=== PATIENT | female | born 1955 | race Caucasian/White ===

== ENCOUNTER 2019-09-23 10:56 | Emergency (ER) | payer OTHER ==
--- OUTSIDE RECORDS SUMMARY | 2019-09-23 11:01 | XMS REPORT | Continuity of Care Document ---
:1955 External Reference #:[id number] Author Name Dylan Seth M.D. Address [address] [place] [address] Care Team Providers Name Role Phone Ryley Pena MD - Ophthalmology Care Team Information Podiatric Assistant [phone] Dylan Seth MD - Family Medicine Care Team Information Podiatric Assistant [phone] Problems Active Problems Provider Date Osteochondropathy Dylan Seth M.D. Onset: 07/31/2011 Weight decreased Dylan Seth M.D. Onset: 08/24/2019 Depressive disorder Dylan Seth M.D. Onset: 08/24/2019 Social History Type Date Description Comments Sex Unknown Tobacco Use Start: Unknown Never Smoked Cigarettes ETOH Use Rare Tobacco Use Start: Unknown Patient has never smoked Allergies, Adverse Reactions, Alerts Active Allergies Reaction Severity Comments Date Sulfa Drugs 10/10/1998 Medications Active Medications SIG Qnty Indications Ordering Provider Date Escitalopram Oxalate 1/2 by mouth 30tabs Dylan Seth, 08/24/2019 10mg every day M.D. Tablets Calcium 600/Magnesium 1 by mouth every Unknown 300/Vitamin D at bedtime 200-100-33.3mg-mg-Unit Capsules Vitamin D3 Vegan 1 by mouth Unknown 2000Unit every day Capsules Gildardo Niagen Unknown Calcium 600 Plant Unknown 600mg Tablets Vitamin B Complex 1 by mouth every Unknown day Tablets Immunizations CPT Code Status Date Vaccine Lot # [id number] Given 09/05/2018 Zoster (Shingles) Vaccine (HZV), Recombinant, [id number] Subunit, Adjuvanted 28203 Given 08/02/2018 Influenza Vac, Quadrivalent, [place] [id number] Given 08/02/2018 Influenza Vac, Quadriv[place], [place] [address] Given 06/01/2018 Zoster (Shingles) Vaccine (HZV), Recombinant, [id number] Subunit, Adjuvanted 47154 Given 01/04/2018 Tdap Tetanus, W Pertussis [id number] Vital Signs Date Vital Result Comment 08/24/2019 3:22pm BP Systolic 100 mmHg BP Diastolic 64 mmHg Heart Rate 60 /min Body Temperature 97.9 F Respiratory Rate 12 /min Height 65 inches 5'5" per pt Weight 131.00 lb BMI (Body Mass Index) 21.8 kg/m2 07/12/2019 2:42pm BP Systolic 110 mmHg BP Diastolic 68 mmHg Heart Rate 76 /min Body Temperature 98.2 F Respiratory Rate 18 /min Weight 119.50 lb Results Test Date Facility Test Result H/L Range Note Laboratory test 07/12/2019 [facility]) Phosphorus 3.2 mg/dL 2.5- 4.8 finding Comprehensive 07/12/2019 [facility]) Sodium 137 mEq/L 134-149 Metabolic Prof Potassium 3.8 mEq/L 3.6-5.5 Chloride 107 mEq/L 94-112 Carbon Dioxide 22 mEq/L 21-32 Glucose 116 mg/dL High 70-105 BUN 14 mg/dL 6-26 Creatinine 0.8 mg/dL 0.6-1.4 BUN/Creat Ratio 17.5 CALC 8.0-36.0 Calcium 9.1 mg/dL 8.6-10.2 Total Protein 7.9 g/dL 6.4-8.3 Albumin 4.5 g/dL 3.8-5.5 Globulin 3.4 g/dL 2.0-4.8 A/G Ratio 1.3 CALC 0.6-2.3 Alk. Phosphatase 86 U/L 30-110 Alt (SGPT) 15 U/L 7-35 Ast (Sgot) 27 U/L 5-34 Total Bilirubin 0.4 mg/dL 0.2-1.3 GFR Non- >60 ml/min/1.73m^ >=60 GFR >60 ml/min/1.73m^ >=60 Laboratory test finding 07/12/2019 [facility]) TSH 2.71 mIU/L 0.50-6.00 Free T4 1.08 ng/dL 0.75-1.54 Free T3 2.51 pg/mL 2.00-4.90 Magnesium, Serum 2.5 mEq/L High 1.2-2.1 Vitamin B-12 306 pg/mL 230-1050 Vitamin D25 30 30-100 Serum Iron 65 g/dL 60-150 CBC Electronic Fma 07/12/2019 [facility]) WBC 5.3 x10^3/UL 4.0- 10.0 RBC 4.25 x10^6/UL 3.93-6.00 HGB 13.8 g/dL 12.0-17.0 HCT 41 % 35-50 MCV 96.0 fL High 80.0-95.0 1 MCH 32.2 pg 25.6-32.2 MCHC 33.8 g/dL 32.2-36.0 RDW-CV 12.7 % 11.6-14.4 PLT 248 x10^3/UL 163-400 MPV 10.3 fL 9.4-12.4 Maura# 3.30 x10^3/UL 1.56-6.13 Lymph# 1.37 x10^3/UL 1.18-3.74 [place]# 0.46 x10^3/UL 0.24-0.82 Eos # 0.1 x10^3/UL 0.0-0.5 Baso # 0.05 x10^3/UL 0.01-0.08 Maura% 62.7 % 34.0-70.0 Lymph % 26.0 % 20.0-52.0 [place]% 8.7 % 5.0-12.0 Eos% 1.5 % 0.7-7.0 Baso% 0.9 % 0.1-1.2 Laboratory test 07/12/2019 [facility] Folate (Folic 8.3 ng/mL >3.0 2, [address] Acid), [place] [address] [phone])- - 1 RESULTS VERIFIED BY REPEAT ANALYSIS 2 1 sst 3 A serum folate concentration of less than 3.1 ng/mL is considered to represent clinical deficiency. Procedures Date Code Description Status 03/06/2018 [id number] Colonoscopy Completed 03/31/2017 [id number] Bone Mineral Density Test Completed 04/30/2016 [id number] Mammogram Completed 11/24/2015 [id number] Mammogram Completed 08/06/2014 [id number] Mammogram Completed 05/01/2013 [id number] Mammogram Completed 11/13/2010 [id number] Mammogram Completed 02/05/2009 [id number] Mammogram Completed 01/29/2008 [id number] Colonoscopy Completed 12/02/2006 [id number] Mammogram Completed Medical Devices Description No Information Available Encounters Type Date Location Provider Dx Diagnosis Office Visit 07/12/2019 [facility] ADALID Valdes G31.84 Mild cognitive 2:15p impairment, so stated E55.9 Vitamin D deficiency, unspecified Assessments Date Code Description Provider 08/24/2019 F32.89 Other specified depressive episodes Dylan Seth M.D. 08/24/2019 R63.4 Abnormal weight loss Dylan Seth M.D. 07/12/2019 G31.84 Mild cognitive impairment, so stated ADALID Valdes 07/12/2019 E55.[place] Vitamin D deficiency, unspecified ADALID Valdes Plan of Treatment Future Appointment(s):10/15/2019 11:30 am - Dylan Seth M.D. at [facility]08/24/2019 - Dylan Seth M.D.F32.89 Other specified depressive episodesComments:she seems improved with regard to her appetite, weight is coming up, she agrees that depression andthe stress of her job are becoming worse and agrees to a low dose of Lexapro as a trial. She plans on contacting [facility] to get into counselling. I told her that a period of short term disability would be advised at this time,she should be out of work until 2019R63.4 Abnormal weight lossComments:weight is coming up, lab work was essentially negativeAllNew Medication:Escitalopram Oxalate 10 mg - 1/2 by mouth every dayComments:mammogram orderedFollow up:she is going to contact me in 2 weeks with update, return in one month Functional Status Description No Information Available Mental Status Description No Information Available Referrals Description No Information Available
[2019-09-23 11:04] VITALS: BP 135/71
--- NOTE | 2019-09-23 11:14 | UC ---
Ear Complaint HPI - HPI Summary HPI Summary: uri symptoms for 2 weeks-yesterday developed right ear pain - History of Current Complaint Chief Complaint: UCEar Stated Complaint: ear ache Time Seen by Provider: 09/23/19 11:10 Hx Obtained From: Patient ?: No Onset/Duration: Lasting Weeks - 2, Worse Since - 1 day ago Pain Intensity: 8 Pain Scale Used: 0-10 Numeric Aggravating Factors: Nothing Alleviating Factors: Nothing - Allergies/Home Medications Allergies/Adverse Reactions: Allergies Allergy/AdvReac Type Severity Reaction Status Date / Time Sulfa (Sulfonamide Allergy Nausea And Verified 09/23/19 11:04 Antibiotics) Vomiting Home Medications: Home Medications Escitalopram * [Lexapro 5 mg (NF)] 5 mg PO DAILY 09/23/19 [History Confirmed ] PMH/Surg Hx/FS Hx/Imm Hx Previously Healthy: Yes Psychological History: Anxiety - Surgical History Surgical History: Yes Surgery Procedure, Year, and Place: APPENDECTOMY-1961. [facility]INKY- BONE MARROW PLACEMENT- - Family History Known Family History: Positive: None - Social History Occupation: Employed Full-time Lives: With Family Alcohol Use: None Substance Use Type: None Smoking Status (MU): Never Smoked Tobacco Review of Systems All Other Systems Reviewed And Are Negative: Yes Constitutional: Positive: Negative Skin: Positive: Negative Eyes: Positive: Negative ENT: Positive: Ear Ache - right, Nasal Discharge, Sinus Congestion Respiratory: Positive: Cough Cardiovascular: Positive: Negative Gastrointestinal: Positive: Negative Genitourinary: Positive: Negative Motor: Positive: Negative Neurovascular: Positive: Negative Musculoskeletal: Positive: Negative Neurological: Positive: Negative Psychological: Positive: Negative Is Patient Immunocompromised?: No Physical Exam Triage Information Reviewed: Yes Appearance: Well-Appearing, No Pain Distress, Well-Nourished Vital Signs: Initial Vital Signs Temp 98.0 F 09/23/19 11:00 Pulse 70 09/23/19 11:00 Resp 16 09/23/19 11:00 BP 135/71 09/23/19 11:00 Pulse Ox 99 09/23/19 11:00 Vital Signs Reviewed: Yes Eye Exam: Normal Eyes: Positive: Conjunctiva Clear ENT Exam: Normal ENT: Positive: Normal ENT inspection, Hearing grossly normal, Nasal congestion, TMs normal - left, TM bulging - right, Uvula midline. Negative: Trismus, Muffled voice, Hoarse voice, Dental tenderness, Sinus tenderness Neck exam: Normal Neck: Positive: Supple, Nontender, No Lymphadenopathy Respiratory Exam: Normal Respiratory: Positive: Chest non-tender, Lungs clear, Normal breath sounds, No respiratory distress, No accessory muscle use Cardiovascular Exam: Normal Cardiovascular: Positive: RRR, Pulses Normal, Brisk Capillary Refill Musculoskeletal Exam: Normal Musculoskeletal: Positive: Strength Intact, ROM Intact, No Edema Neurological Exam: Normal Neurological: Positive: Alert, Muscle Tone Normal Psychological Exam: Normal Skin Exam: Normal Ear Complaint Course/Dx - Course Course Of Treatment: increase fluids, Tylenol, ibuprofen for pain augmentin bid for 10 days follow with pcp prn - Differential Dx/Diagnosis Provider Diagnosis: Right acute otitis media Discharge ED - Sign-Out/Discharge Documenting (check all that apply): Patient Departure All imaging exams completed and their final reports reviewed: No Studies - Discharge Plan Condition: Stable Disposition: HOME Prescriptions: Amoxicillin/Clavulanate TAB* [Augmentin TAB 875*] 875 mg PO BID #20 tab Patient Education Materials: Ear Infection (ED) Referrals: Dylan Seth MD [Primary Care Provider] - If Needed - Billing Disposition and Condition Condition: STABLE Disposition: Home
== END 2019-09-23 11:17 | disposition home or self-care (01) ==
LOC: UCEAST 10:56
DX: H66.91 Otitis media, unspecified, right ear (principal); F41.9 Anxiety disorder, unspecified; R05 Cough; J34.89 Other specified disorders of nose and nasal sinuses; Z79.899 Other long term (current) drug therapy; Z88.2 Allergy status to sulfonamides
CPT/HCPCS: 99212; G0463

== ENCOUNTER 2019-10-29 13:24 | Emergency (ER) | payer OTHER, MEDICARE ==
[2019-10-29 13:50] VITALS: BP 113/64
--- NOTE | 2019-10-29 13:52 | UC ---
Skin Complaint HPI - HPI Summary HPI Summary: 64 yo female presents with right great toe pain. She tells me that a few days ago she cut her right big toe nail too short and last night developed pain to the medial aspect of the toe/nail skin-fold. Today is red, swollen, and more painful. Denies injury or fever. - History of Current Complaint Chief Complaint: UCLowerExtremity Time Seen by Provider: 10/29/19 13:50 Stated Complaint: TOE PROBLEM Hx Obtained From: Patient Hx Last Menstrual Period: post Onset/Duration: Sudden Onset Onset Severity: Mild Current Severity: Moderate Pain Intensity: 5 - Allergy/Home Medications Allergies/Adverse Reactions: Allergies Allergy/AdvReac Type Severity Reaction Status Date / Time Sulfa (Sulfonamide Allergy Nausea And Verified 10/29/19 13:50 Antibiotics) Vomiting Home Medications: Home Medications Donepezil TAB* [Aricept 5 MG TAB*] 1 tab PO DAILY 10/29/19 [History Confirmed ] PMH/Surg Hx/FS Hx/Imm Hx Neurological History: Dementia Psychological History: Anxiety, Depression - Surgical History Surgical History: Yes Surgery Procedure, Year, and Place: APPENDECTOMY-1961. PINKY- BONE MARROW PLACEMENT- -1982 - Family History Known Family History: Positive: None - Social History Lives: With Family Alcohol Use: None Substance Use Type: None Smoking Status (MU): Never Smoked Tobacco Review of Systems All Other Systems Reviewed And Are Negative: No Constitutional: Positive: Negative Skin: Positive: Other - Great right toe pain Respiratory: Positive: Negative Cardiovascular: Positive: Negative Neurological: Positive: Negative Psychological: Positive: Negative Physical Exam - Summary Physical Exam Summary: GENERAL: NAD. WDWN. No pain distress. SKIN: RIGHT GREAT TOE: Medial aspect of nail-skin fold with mild erythema, edema , and tenderness. No abscess or fluctuance. CHEST: No accessory muscle use. Breathing comfortably and in no distress. CV: Pulses intact. Cap refill <2seconds NEURO: Alert. PSYCH: Age appropriate behavior. Triage Information Reviewed: Yes Vital Signs: Initial Vital Signs Temp 98.6 F 10/29/19 13:46 Pulse 69 10/29/19 13:46 Resp 16 10/29/19 13:46 BP 113/64 10/29/19 13:46 Pulse Ox 98 10/29/19 13:46 Vital Signs Reviewed: Yes Course/Dx - Course Course Of Treatment: Paronychia. Advised warm salt water/epsom salt soaks. - Diagnoses Provider Diagnosis: Paronychia Discharge ED - Sign-Out/Discharge Documenting (check all that apply): Patient Departure All imaging exams completed and their final reports reviewed: No Studies - Discharge Plan Condition: Stable Disposition: HOME Prescriptions: Cephalexin CAP* [Keflex CAP*] 500 mg PO TID #15 cap Patient Education Materials: Paronychia (ED) Referrals: Dylan Seth MD [Primary Care Provider] - Trevin Santos DPM [Doctor of Podiatric Medicine] - As Soon As Possible Additional Instructions: If you develop a fever, shortness of breath, chest pain, new or worsening symptoms - please call your PCP or go to the ED immediately. I recommend that you schedule an appointment with podiatry for further treatment of your toe - Billing Disposition and Condition Condition: STABLE Disposition: Home
== END 2019-10-29 14:11 | disposition home or self-care (01) ==
LOC: UCEAST 13:24
DX: L03.031 Cellulitis of right toe (principal); F03.90 Unspecified dementia, unspecified severity, without behavioral disturbance, psychotic disturbance, mood disturbance, and anxiety; Z79.899 Other long term (current) drug therapy
CPT/HCPCS: 99212; G0463